=== PATIENT | male | born 1965 | race African-American/Black ===

== ENCOUNTER 2023-12-13 06:21 | Day surgery (SDC) | payer OTHER, MEDICAID ==
[2023-12-12 10:36] VITALS: BMI 42.5
[2023-12-13] MEDS ORDERED: PROPOFOL 20 ML ONE (08:59)
[2023-12-13] MEDS ORDERED: ePHEDrine Sulfate 50 MG/10 ML VIAL ONE (09:37)
[2023-12-13] MEDS ORDERED: PHENYLEPHRINE-NS 100 MCG/ML 10 ML SYRINGE ONE (11:43)
== END 2023-12-13 10:20 | disposition home or self-care (01) ==
LOC: CSHSDC 06:21
PROVIDERS: ATTEND Internal Medicine Gastroenterology
PROC: 0DBP8ZZ Excision of Rectum, Via Natural or Artificial Opening Endoscopic (ICD-10-PCS; principal; 2023-12-13)
DX: Z12.11 Encounter for screening for malignant neoplasm of colon (principal); K62.1 Rectal polyp; K62.89 Other specified diseases of anus and rectum; K57.30 Diverticulosis of large intestine without perforation or abscess without bleeding; K64.9 Unspecified hemorrhoids; G47.30 Sleep apnea, unspecified; E11.9 Type 2 diabetes mellitus without complications; E78.5 Hyperlipidemia, unspecified; J44.9 Chronic obstructive pulmonary disease, unspecified; I10 Essential (primary) hypertension; Z79.51 Long term (current) use of inhaled steroids; Z79.899 Other long term (current) drug therapy
CPT/HCPCS: 88305; J2704